=== PATIENT | female | born 1945 | race Asian ===

== ENCOUNTER 2020-09-27 22:29 | Inpatient (IN) | payer MEDICARE, OTHER ==
[~2020-09-27] VITALS: Ht 157.5 cm; Wt 46.7 kg
[2020-09-27 23:05] LABS: BASOPHILS % (AUTO) 0.6 % (0.0-2.0); EOSINOPHILS # (AUTO) 0.1 K/uL (0.0-0.7); HEMATOCRIT 39.7 % (31.2-41.9); HEMOGLOBIN 13.3 g/dL (10.9-14.3); LYMPHOCYTES # (AUTO) 2.1 K/uL (20.0-40.0); LYMPHOCYTES % (AUTO) 31.4 % (20.5-51.5); MEAN CORPUSCULAR HEMOGLOBIN 31.2 uug (24.7-32.8); MEAN CORPUSCULAR HGB CONC 34 g/dL (32.3-35.6); MEAN CORPUSCULAR VOLUME 92.9 fL (75.5-95.3); MONOCYTES # (AUTO) 0.8 K/uL (2.0-10.0); MONOCYTES % (AUTO) 11.6 % (0.0-11.0); NEUTROPHILS # (AUTO) 3.6 K/uL (1.8-8.9); NEUTROPHILS % (AUTO) 54.4 % (38.5-71.5); PLATELET COUNT (AUTO) 198 K/uL (179-408); RED BLOOD CELL COUNT(AUTO) 4.27 MIL/uL (3.63-4.92); WHITE BLOOD COUNT (AUTO) 6.6 K/uL (3.8-11.8)
[2020-09-27 23:08] LABS: CARBON DIOXIDE 27 mmol/L (21-32); CHLORIDE 104 mmol/L (98-107); CREATININE 0.8 mg/dL (0.6-1.3); GLUCOSE 96 mg/dL (74-106); POTASSIUM 3.6 mmol/L (3.5-5.1); UREA NITROGEN, BLOOD 16 mg/dL (7-18)
[2020-09-27 23:21] LABS: THYROID STIMULATING HORMONE 2.842 mIU/mL (0.358-3.740)
[2020-09-27 23:23] LABS: ALANINE AMINOTRANSFERASE 12 U/L (14-59); ALKALINE PHOSPHATASE 73 U/L (50-136); ASPARTATE AMINOTRANSFERASE 15 U/L (15-37); BILIRUBIN,DIRECT 0.1 mg/dL (0.0-0.2); BILIRUBIN,TOTAL 0.3 mg/dL (0.2-1.0); TOTAL PROTEIN, SERUM 6.8 g/dL (6.4-8.2)
[2020-09-27 23:25] LABS: ACETAMINOPHEN < 2.0 ug/mL (10-30)
[2020-09-27] MEDS ORDERED: MULT-213 PO (23:27)
[2020-09-27] MEDS ORDERED: MAGN400O6 PO (23:27)
[2020-09-27] MEDS ORDERED: ACET-2154 PO (23:27)
[2020-09-27] MEDS ORDERED: CYAN-10 IJ (23:27)
[2020-09-27] MEDS ORDERED: QUER1POW PO (23:27)
[2020-09-27] MEDS ORDERED: MELA3TAB41 PO (23:27)
[2020-09-27] MEDS ORDERED: DOCU100C36 PO (23:27)
[2020-09-27] MEDS ORDERED: RISP1TAB7 PO (23:27)
[2020-09-27] MEDS ORDERED: CRAN425C6 PO (23:27)
[2020-09-27] MEDS ORDERED: DIVA125C2 PO ×2 (23:27)
[2020-09-27 23:33] LABS: ETHANOL < 3 MG/DL (0-0)
[2020-09-27 23:57] LABS: *BILIRUBIN,URIN NEGATIVE (NEGATIVE); *BLOOD, URINE NEGATIVE (NEGATIVE); *CLARITY,URINE CLEAR (CLEAR); *COLOR,URINE YELLOW (YELLOW); *KETONES,URINE NEGATIVE (NEGATIVE); *UROBILINOGEN,URINE 0.2 E.U./dl (NORMAL); LEUKOCYTE ESTERASE ,URINE NEGATIVE (NEGATIVE); NITRITE, URINE NEGATIVE (NEGATIVE); PH,URINE 6.5 (5.0-8.0); UGLUCOSE TRACE (NEGATIVE)
[2020-09-28 00:09] LABS: BACTERIA,URINE NONE SEEN /HPF (NONE SEEN); RBC,URINE 0-3 /HPF (0-3); SQUAMOUS EPITHELIAL CELL,UR FEW /HPF (NONE SEEN)
[2020-09-28 00:13] LABS: *AMPHETAMINE, URINE NEGATIVE (NEGATIVE); *CANNABINOID, URINE NEGATIVE (NEGATIVE); *COCCAINE, URINE NEGATIVE (NEGATIVE); *OPIATE, URINE NEGATIVE (NEGATIVE); *PHENCYCLIDINE SCREEN,URINE NEGATIVE (NEGATIVE)
--- NOTE | 2020-09-28 01:30 | NUR ---
Called for room, patient will be going to room 141A under the care of Dr. Donnelly/YULY Meier.
--- NOTE | 2020-09-28 01:45 | NUR ---
Report given to RN Will.
--- NOTE | 2020-09-28 02:17 | NUR ---
Patient sitting upright, looking at environment. No acute distress noted.
--- NOTE | 2020-09-28 02:30 | NUR ---
Pt. admitted to U 141A, under care of Dr. Donnelly/Hardeep Belongs List completed
[2020-09-28 02:45] VITALS: BP 137/78
[2020-09-28] MEDS ORDERED: LORAZEPAM 0.5 MG TABLET PO PRN (02:45)
[2020-09-28] MEDS ORDERED: MAGNESIUM HYDROXIDE 30 ML LIQUID UDC PO PRN (02:45)
[2020-09-28] MEDS ORDERED: MAG HYDROX/AL HYDROX/SIMETH 30 ML LIQUID UDC PO PRN (02:45)
[2020-09-28] MEDS ORDERED: TEMAZEPAM 7.5 MG CAPSULE PO PRN (02:45)
[2020-09-28] MEDS ORDERED: ACETAMINOPHEN 325 MG TABLET PO PRN (02:45)
[2020-09-28] MEDS ORDERED: BLOOD SUGAR DIAGNOSTIC 1 EACH STRIP VI ONE (02:45)
--- NOTE | 2020-09-28 03:00 | NUR ---
ADMITTED PATIENT ON THE MHU UNDER THE CARE OF DR MOSQUEDA, AND ERICA. PATIENT ALERT BUT WITH CONFUSION AND DELUSIONAL, DISHEVELED REFUSED TO TAKE SHOWERS. PATIENT STATES THAT SHE DOESN'T TAKE ANY KIND OF VACCINE. PATIENT AMBULATES AND CONTINENT OF BOWEL AND BLADDER. ORIENTED TO FACILITY AND TO HER ROOM.
--- NOTE | 2020-09-28 03:57 | NUR ---
Patient refused, will have lab draw at 0600.
[2020-09-28 07:30] VITALS: BP 116/70
--- NOTE | 2020-09-28 11:20 | NUR ---
Firearms Report: Med Asst completed and submitted a DOJ firearms report for 5150 danger to others and grave disability certifications. A copy of report has been placed in patient chart.
--- NOTE | 2020-09-28 11:33 | NUR ---
LAINA Family Contact: LAINA spoke with patient's son Surekha Zazueta ([phone]) is involved in the patient's care. SW discussed treatment and discharge plan.
--- NOTE | 2020-09-28 11:33 | NUR ---
LAINA Initial Discharge Plan: Patient currently resides at [facility] [address] [place] [address] ([phone]) and will return upon discharge. Patient's son Surekha Zazueta ([phone]) is involved in the patient's care. LAINA will continue to work with patient, family, and MD to ensure a safe and proper discharge plan.
[2020-09-28] MEDS: DIVALPROEX SPRINKLE 125 MG CAP.SPRINK PO SCH ×2 (12:44→16:34)
[2020-09-28] MEDS: risperiDONE-M 0.5 MG TAB.RAPDIS PO SCH ×2 (12:44→20:31)
[2020-09-28 15:48] VITALS: BP 90/51
--- NOTE | 2020-09-28 17:21 | NUR ---
Patient remains in bed the whole time, tried to open communication but refuse to talk. Patient compliant with medication. no c/o of pain/discomfort noted. will continue monitor
[2020-09-28 20:15] VITALS: BP 103/67
--- NOTE | 2020-09-29 06:29 | NUR ---
Pt asleep at this time, no s/s of distress. No complaints of pain during the shift, no change in LOC. Slept for 6.15hrs. Interacts appropriately with others when engaged. Safety precautions in place, frequent checks done.
[2020-09-29 07:30] VITALS: BP 104/68
--- NOTE | 2020-09-29 08:30 | NUR ---
ALERT REMAINS ANXIOUS AND UNCOOPERATIVE REFUSED MEDICATIONS DESPITE ENCOURAGEMENT ENCOURAGED TO PARTICIPATE IN ACTIVITIES AND REMAIN COMPLIANT WITH HER MEDICATIONS WILL CONTINUE TO PROVIDE SAFE AND THERAPEUTIC ENVIRONMENT AT ALL TIMES
--- NOTE | 2020-09-29 08:30 | NUR ---
PATIENT IS AWAKE ALERT BUT IS FORGETFUL AND DISORIENTED AT TIMES ASKS SAME QUESTIONS WANTED TO KNOW WEATHER SHE COULD LAY DOWN ON HER BED AND SLEEP REASSURED HER THAT IT WILL BE OKAY FOR HER TO LAY DOWN AND RELAX AND THEN GO TO THE ACTIVITY ROOM AND PARTICIPATE ABLE COMPLIANT WITH MEDICATIONS AND CARE SAFE AND THERAPEUTIC ENVIRONMENT PROVIDED AT ALL TIMES. Addendum: 09/29/20 at 1833 by GILDA SALINAS RN ERROR WRONG ENTRY WRONG PATIENT
[2020-09-29] MEDS: risperiDONE-M 0.5 MG TAB.RAPDIS PO SCH ×3 (08:46→20:46)
[2020-09-29] MEDS: DIVALPROEX SPRINKLE 125 MG CAP.SPRINK PO SCH ×4 (08:46→17:00)
[2020-09-29 16:00] VITALS: BP 95/62
[2020-09-29 20:20] VITALS: BP 97/57
--- NOTE | 2020-09-30 04:33 | NUR ---
Patient stayed in her room most of the shift. Patient refused medications, has multiple episode of paranoia, believes that medication bad for her body, and said that Tee was telling her about these medications are bad for her. cont to monitor.
[2020-09-30 07:30] VITALS: BP_SYST 116; BP_SYST 99; BP_DIAS 62; BP_DIAS 63
--- NOTE | 2020-09-30 07:45 | NUR ---
RECEIVED PATIENT SITTING UP IN HER BED AWAKE ALERT DEPRESSED AND QUIET STATED SHE WAS OKAY WHEN ASKED IF SHE WILL TAKE HER MEDICATIONS TODAY STATED THAT SHE WILL NOT BECAUSE ITS NOT GOOD FOR HER THAT FLOR TOLD HER NOT TO TAKE IT BECAUSE IT WILL CAUSE HER BODY HARM WILL HAVE DR MOSQUEDA TALK TO THE PATIENT TODAY.WILL CONTINUE TO PROVIDE SAFE AND THERAPEUTIC ENVIRONMENT AT ALL TIMES.
[2020-09-30] MEDS ORDERED: Medication Not On Formulary EA (Multivitamins W-Minerals (Multivitamin With Minerals) 1 PO SCH (09:00)
[2020-09-30] MEDS: MULTIVIT, IRON, MIN NO. 8, FA TABLET PO SCH (09:00)
[2020-09-30] MEDS: risperiDONE-M 0.5 MG TAB.RAPDIS PO SCH ×2 (09:00→21:00)
[2020-09-30] MEDS: DOCUSATE SODIUM 100 MG CAPSULE PO SCH (09:00)
[2020-09-30] MEDS: DIVALPROEX SPRINKLE 125 MG CAP.SPRINK PO SCH ×3 (09:00→17:00)
--- NOTE | 2020-09-30 09:04 | NUR ---
PATIENT LAYING IN BED REFUSED ALL HER MEDICATIONS AT THIS TIME STATED THAT THEY ARE NOT GOOD FOR HER THEY MAKE HER SHAKE AND THAT SHE IS HERE TO RELAX AND FEEL BETTER SO WILL NOTIFY DR MOSQUEDA PATIENT CONTINUES TO RERFUSE MEDS.
--- NOTE | 2020-09-30 15:00 | NUR ---
DR MOSQUEDA HERE TO SEE PATIENT AND WAS NOTIFIED THAT PATIENT HAS NOT TAKEN HER MEDICATIONS SINCE YESTERDAY WITH NO NEW ORDERS AT THIS TIME DR MOSQUEDA WANTED TO GIVE THE PATIENT AN EXTENDED RELEASE INJECTION BUT PATIENT REFUSED.
--- NOTE | 2020-09-30 15:58 | NUR ---
SW Individual Therapy Note: SW met with patient today for brief individual counseling and addressed patient's presenting problem delusional thought process.Patient presents with withdrawn mood and flat affect. SW encouraged patient to engage in a meaningful conversation and join group activities. Patient has been isolative in her room, laying in bed. Patient states, "I am fine" and nods her head "no" to joining group. Patient closed her eyes and refused to engage in a conversation. SW will continue to work with the patient and remain available for ongoing psychosocial support.
[2020-09-30 16:00] VITALS: BP 97/58
--- NOTE | 2020-09-30 18:21 | NUR ---
RESTING IN BED WITH NO C/O STAYING IN ROOM/BED ALL DAY BUT IS EATING AND DRINKING WELL STATED THAT SHE HAS NO NEED TO TAKE ANY MEDICATIONS BECAUSE SHE FEELS FINE.
[2020-09-30 20:02] VITALS: BP 101/61
--- NOTE | 2020-10-01 06:23 | NUR ---
Patient slept 7.00 hours.
[2020-10-01 07:30] VITALS: BP 108/65
--- NOTE | 2020-10-01 07:30 | NUR ---
Sleeping, appears comfortable, not in distress
[2020-10-01] MEDS: DOCUSATE SODIUM 100 MG CAPSULE PO SCH ×2 (08:59→09:00)
[2020-10-01] MEDS: risperiDONE-M 0.5 MG TAB.RAPDIS PO SCH ×3 (09:00→20:40)
[2020-10-01] MEDS: MULTIVIT, IRON, MIN NO. 8, FA TABLET PO SCH (09:00)
[2020-10-01] MEDS: DIVALPROEX SPRINKLE 125 MG CAP.SPRINK PO SCH ×4 (09:00→17:00)
--- NOTE | 2020-10-01 10:06 | NUR ---
Anxious, refused to take medications, saying she's okay and that her mom and dad told her not take medications and she feels jittery when taking medication
--- NOTE | 2020-10-01 13:34 | NUR ---
Labile mood, pleasant, compliant with taking the medication at this time
[2020-10-01] MEDS: INVEGA SUSTENNA 234 MG IM ONE ×2 (16:54→19:35)
[2020-10-01 17:22] VITALS: BP 121/81
--- NOTE | 2020-10-01 18:11 | NUR ---
Initially agreed to take Invega IM but later refused the dose and became agitated. Dr. Donnelly informed and will try to attempt again giving the dose
--- NOTE | 2020-10-01 19:35 | NUR ---
Attempted again to give Invega IM but patient refused medication, endorsed
[2020-10-01 20:47] VITALS: BP 105/59
--- NOTE | 2020-10-02 06:31 | NUR ---
Patient slept a total of 7.30 hours.
[2020-10-02 07:30] VITALS: BP 112/71
[2020-10-02] MEDS: DIVALPROEX SPRINKLE 125 MG CAP.SPRINK PO SCH ×4 (08:23→16:32)
[2020-10-02] MEDS: DOCUSATE SODIUM 100 MG CAPSULE PO SCH ×2 (08:23→08:27)
[2020-10-02] MEDS: risperiDONE-M 0.5 MG TAB.RAPDIS PO SCH ×3 (08:23→20:38)
[2020-10-02] MEDS: MULTIVIT, IRON, MIN NO. 8, FA TABLET PO SCH ×2 (08:23→08:27)
--- NOTE | 2020-10-02 08:28 | NUR ---
Patient refused to take oral scheduled medications stating "these medication only make me feel bad and I don't need them I have plenty of them at home and my son will take me back home". Patient educated on the benefits of taking her oral medications and educated on dcd home release criteria for MHU patient's. Patient unable to comprehend at this time. Will continue with care plan.
[2020-10-02 16:00] VITALS: BP 107/66
[2020-10-02 20:00] VITALS: BP 110/69
--- NOTE | 2020-10-03 05:55 | NUR ---
Received patient standing in the doorway of her room with dark sunglasses on. The patient proceeded to tell the database report writer " My son is on his way to pick me up tonight" and " I will not take any medication because Tee and Nahed told me not too". This database report writer provided education and encouragement to the patient about compliance. The patient adamantly refused. As the night wore on the patient became more delusional and paranoid. This database report writer attempted to reorient and redirect her, but to no avail. Staff is providing a safe environment and monitoring patient closely for AWOL as she has been seen at the unit door multiple times.
[2020-10-03] MEDS: MULTIVIT, IRON, MIN NO. 8, FA TABLET PO SCH (08:17)
[2020-10-03] MEDS: risperiDONE-M 0.5 MG TAB.RAPDIS PO SCH ×2 (08:17→21:00)
[2020-10-03] MEDS: DIVALPROEX SPRINKLE 125 MG CAP.SPRINK PO SCH ×3 (08:17→17:00)
[2020-10-03] MEDS: DOCUSATE SODIUM 100 MG CAPSULE PO SCH (08:17)
[2020-10-03 08:29] VITALS: BP 95/64
--- NOTE | 2020-10-03 08:48 | NUR ---
Received pt. on her bed, sleeping easily arousable. Patient later on refused medications stating "I don't take them they don't do any good to me". compliant on/off with nursing care. Vitals stable. Will continue to monitor.
--- NOTE | 2020-10-03 17:09 | NUR ---
Patient refusing 1700 medications stating "I don't need them they make me feel shaky and besides now that I'm not taking those medications I've been able to sleep". pt. educated one more time on the need to adhere to medication regimen and advice of care plan.
[2020-10-03 20:20] VITALS: BP 119/74
--- NOTE | 2020-10-04 05:28 | NUR ---
Patient refused to take all medications despite the china and silverware salesperson psychiatrist encouraging and educating the patient, in person, about the importance of compliance. The patient continues to be paranoid and has multiple delusions.
[2020-10-04 07:30] VITALS: BP 95/57
[2020-10-04] MEDS: MULTIVIT, IRON, MIN NO. 8, FA TABLET PO SCH (08:45)
[2020-10-04] MEDS: DOCUSATE SODIUM 100 MG CAPSULE PO SCH (08:45)
[2020-10-04] MEDS: DIVALPROEX SPRINKLE 125 MG CAP.SPRINK PO SCH ×3 (08:45→17:00)
[2020-10-04] MEDS: risperiDONE-M 0.5 MG TAB.RAPDIS PO SCH ×2 (08:45→20:28)
[2020-10-04] MEDS: BENZTROPINE MESYLATE 0.5 MG TABLET PO SCH ×3 (09:15→17:00)
--- NOTE | 2020-10-04 10:44 | NUR ---
Court Hearing: Patient's court hearing was today for 5250 and it was upheld for GD.
[2020-10-04 15:06] VITALS: BP 90/53
[2020-10-04 20:29] VITALS: BP 115/74
--- NOTE | 2020-10-04 20:30 | NUR ---
PATIENT REFUSED HS MEDICATIONS. ALGEBRAIST NURSE NOTIFIED. ALL NEEDS ATTENDED. WILL CONTINUE TO MONITOR AND ASSESS.
[2020-10-05 07:07] LABS: BASOPHILS % (AUTO) 0.8 % (0.0-2.0); EOSINOPHILS # (AUTO) 0.2 K/uL (0.0-0.7); EOSINOPHILS % (AUTO) 2.7 % (0.0-7.0); HEMATOCRIT 40.6 % (31.2-41.9); HEMOGLOBIN 13.5 g/dL (10.9-14.3); LYMPHOCYTES # (AUTO) 2.3 K/uL (20.0-40.0); LYMPHOCYTES % (AUTO) 37.7 % (20.5-51.5); MEAN CORPUSCULAR HEMOGLOBIN 31.2 uug (24.7-32.8); MEAN CORPUSCULAR HGB CONC 33 g/dL (32.3-35.6); MEAN CORPUSCULAR VOLUME 93.7 fL (75.5-95.3); MONOCYTES # (AUTO) 0.7 K/uL (2.0-10.0); MONOCYTES % (AUTO) 11.1 % (0.0-11.0); NEUTROPHILS % (AUTO) 47.7 % (38.5-71.5); PLATELET COUNT (AUTO) 204 K/uL (179-408); RED BLOOD CELL COUNT(AUTO) 4.33 MIL/uL (3.63-4.92); WHITE BLOOD COUNT (AUTO) 6.2 K/uL (3.8-11.8)
[2020-10-05 07:12] LABS: BILIRUBIN,TOTAL 0.3 mg/dL (0.2-1.0); CREATININE 0.7 mg/dL (0.6-1.3); MAGNESIUM 2.3 mg/dL (1.8-2.4); PHOSPHOROUS 3.6 mg/dL (2.5-4.9); POTASSIUM 3.6 mmol/L (3.5-5.1); TOTAL PROTEIN, SERUM 7.1 g/dL (6.4-8.2)
[2020-10-05 07:30] VITALS: BP 104/67
[2020-10-05] MEDS: risperiDONE-M 0.5 MG TAB.RAPDIS PO SCH ×3 (09:00→20:02)
[2020-10-05] MEDS: BENZTROPINE MESYLATE 0.5 MG TABLET PO SCH ×3 (09:00→17:34)
[2020-10-05] MEDS: DIVALPROEX SPRINKLE 125 MG CAP.SPRINK PO SCH ×3 (09:00→17:34)
[2020-10-05] MEDS: MULTIVIT, IRON, MIN NO. 8, FA TABLET PO SCH (09:00)
[2020-10-05] MEDS: DOCUSATE SODIUM 100 MG CAPSULE PO SCH (09:00)
[2020-10-05] MEDS ORDERED: OLANZAPINE 10 MG VIAL IM PRN (10:30)
[2020-10-05 15:26] VITALS: BP 94/61
[2020-10-05 20:30] VITALS: BP 114/75
[2020-10-06 07:30] VITALS: BP 104/60
--- NOTE | 2020-10-06 07:30 | NUR ---
Received report from TREVON Rose. All questions, comments, and concerns were addressed. Patient resting quietly and comfortably in her assigned bed. Bed is in low and locked position.
[2020-10-06] MEDS: risperiDONE-M 0.5 MG TAB.RAPDIS PO SCH ×2 (08:30→20:04)
[2020-10-06] MEDS: MULTIVIT, IRON, MIN NO. 8, FA TABLET PO SCH (08:30)
[2020-10-06] MEDS: DOCUSATE SODIUM 100 MG CAPSULE PO SCH (08:30)
[2020-10-06] MEDS: DIVALPROEX SPRINKLE 125 MG CAP.SPRINK PO SCH ×3 (08:30→17:00)
[2020-10-06] MEDS: BENZTROPINE MESYLATE 0.5 MG TABLET PO SCH ×3 (08:30→17:00)
--- NOTE | 2020-10-06 10:20 | NUR ---
Patient is alert and oriented. Patient is guarded, isolative, and withdrawn to her room. She is dismissive with this financial underwriter and is refusing to participate in the unit groups and activities. Patient denies SI/HI, denies AH/VH but she is noted with paranoid delusions and is suspicious of staff. Patient believes that staff is attempting to harm her and she generalizes threats to staff. Patient refused AM medications. She states that she is "done" taking medications, she does not need anymore medications, and that her medications make her "cold and shaky". Patient was provided with education about importance of medication adherence, risks and benefits of medication, but she continues to say "no" and refuse. Per Riese order, patient given Zyprexa 3 mg IM once. Patient educated about injection but is refusing education at this time. Patient encouraged to participate in the unit groups and therapeutic milieu but she continues to be angry and irritable. Patient's safety maintained.
[2020-10-06] MEDS ORDERED: OLANZAPINE 10 MG VIAL IM PRN (10:45)
--- NOTE | 2020-10-06 13:00 | NUR ---
Patient refused scheduled 1300 medications. Patient was provided with education about importance of medication adherence, risks and benefits of medication, but she continues to say "no" and refuse. Patient is refusing to participate and is angry and irritable. Patient's safety maintained.
--- NOTE | 2020-10-06 15:36 | NUR ---
SW Individual Therapy Note: SW met with patient today for brief individual counseling and addressed patient's presenting problem delusional thought process. Patient presents with withdrawn mood and isolative. Patient in her bed with blanket covering herself. This SW encouraged pt to engage with peers and to join group. Pt refused and stated "No, I am sleeping". Patient does not want to conduct therapy, interact with peers or join group. SW unable to conduct therapy at this time.
[2020-10-06 16:00] VITALS: BP 101/65
[2020-10-06 20:52] VITALS: BP 123/80
[2020-10-07 07:30] VITALS: BP 96/71
[2020-10-07] MEDS: DOCUSATE SODIUM 100 MG CAPSULE PO SCH (08:23)
[2020-10-07] MEDS: MULTIVIT, IRON, MIN NO. 8, FA TABLET PO SCH (08:23)
[2020-10-07] MEDS: DIVALPROEX SPRINKLE 125 MG CAP.SPRINK PO SCH ×3 (08:23→16:14)
[2020-10-07] MEDS: BENZTROPINE MESYLATE 0.5 MG TABLET PO SCH ×3 (08:24→16:14)
[2020-10-07] MEDS: risperiDONE-M 0.5 MG TAB.RAPDIS PO SCH (08:24)
[2020-10-07] MEDS ORDERED: MISCELLANEOUS MED XX PRN (14:00)
[2020-10-07 16:39] VITALS: BP 90/59
[2020-10-07 20:15] VITALS: BP 95/70
--- NOTE | 2020-10-07 21:25 | NUR ---
received patient in bed alert and oriented x3-4. Calm and cooperative. VSS. Needs attended. Ambulatory. Compliant with care. No signs of any behavioral issues noted. Continent of bowel and bladder. Will monitor patient.
[2020-10-08 07:30] VITALS: BP 111/65
[2020-10-08] MEDS: DIVALPROEX SPRINKLE 125 MG CAP.SPRINK PO SCH ×3 (09:00→16:42)
[2020-10-08] MEDS: DOCUSATE SODIUM 100 MG CAPSULE PO SCH (09:00)
[2020-10-08] MEDS: MULTIVIT, IRON, MIN NO. 8, FA TABLET PO SCH (09:00)
[2020-10-08] MEDS: BENZTROPINE MESYLATE 0.5 MG TABLET PO SCH ×3 (09:00→16:42)
[2020-10-08] MEDS: risperiDONE 1 MG TABLET PO SCH ×2 (09:45→20:55)
[2020-10-08] MEDS: OLANZAPINE 10 MG VIAL IM PRN (10:04)
--- NOTE | 2020-10-08 14:38 | NUR ---
SW Individual Therapy Note: SW met with patient today for brief individual counseling and addressed patient's presenting problem delusional thought process. Patient presents isolative and withdrawn. Patient continues to refuse to engage in group activities or engage in meaningful conversation. Patient nods her head "yes" or "no" when asking her questions however says "no" to having a discussion. SW encouraged patient to at least join one group daily. SW will continue to work with the patient and remain available for ongoing psychosocial support.
[2020-10-08 16:45] VITALS: BP 129/81
[2020-10-08 20:13] VITALS: BP 107/63
[2020-10-09 00:38] VITALS: BP 97/57
[2020-10-09 04:00] VITALS: BP 103/72
--- NOTE | 2020-10-09 05:43 | NUR ---
GPS: Remain calm and cooperative. no aggressive behavior noted. patient continue isolative with staff. ambulate with steady gait. self care. resting in bed comfortably.continue plan of care.
--- NOTE | 2020-10-09 05:51 | NUR ---
slept 4 hrs through night.
[2020-10-09] MEDS: MULTIVIT, IRON, MIN NO. 8, FA TABLET PO SCH (08:27)
[2020-10-09] MEDS: risperiDONE 1 MG TABLET PO SCH ×2 (08:27→20:11)
[2020-10-09] MEDS: DIVALPROEX SPRINKLE 125 MG CAP.SPRINK PO SCH ×4 (08:27→17:00)
[2020-10-09] MEDS: DOCUSATE SODIUM 100 MG CAPSULE PO SCH (08:27)
[2020-10-09] MEDS: BENZTROPINE MESYLATE 0.5 MG TABLET PO SCH ×4 (08:27→17:00)
[2020-10-09 08:28] VITALS: BP 94/53
--- NOTE | 2020-10-09 13:30 | NUR ---
Received patient AOx2-3, patient calm anc cooperative, redirectable, took morning medication, but refused her 1pm medication , verbalized that the doctor will give her medication not the nurses, patient delusional and paranoid, mentally preoccupied ,, assisted with ADL, denies SI and HI, patient isolative , monitored [id number] for safety and elopement risk, no sign of distress at this time
[2020-10-09 16:17] VITALS: BP 99/64
[2020-10-09 20:00] VITALS: BP 93/56
[2020-10-10 00:02] VITALS: BP 93/54
--- NOTE | 2020-10-10 06:01 | NUR ---
GPS: Remain calm and cooperative. no aggressive behavior noted. patient continue isolative with staff. ambulate with steady gait. self care. slept 7 hrs through the night. Resting in bed comfortably.continue plan of care.
[2020-10-10 07:30] VITALS: BP 91/56
[2020-10-10] MEDS: BENZTROPINE MESYLATE 0.5 MG TABLET PO SCH ×3 (08:39→16:36)
[2020-10-10] MEDS: risperiDONE 1 MG TABLET PO SCH ×2 (08:40→20:45)
[2020-10-10] MEDS: DIVALPROEX SPRINKLE 125 MG CAP.SPRINK PO SCH ×3 (08:41→16:36)
[2020-10-10] MEDS: DOCUSATE SODIUM 100 MG CAPSULE PO SCH (08:43)
[2020-10-10] MEDS: MULTIVIT, IRON, MIN NO. 8, FA TABLET PO SCH (08:43)
--- NOTE | 2020-10-10 13:50 | NUR ---
Received pt is alert and oriented. Patient is guarded, isolative, and withdrawn to her room.took some of am medication,patient remains delusional paranoid and suspicious.will continue close monitoring.
[2020-10-10 15:13] VITALS: BP 99/64
[2020-10-10 20:12] VITALS: BP 101/56
--- NOTE | 2020-10-10 21:00 | NUR ---
RECEIVED PATIENT IN HER ROOM IN BED. SHE IS NOTED A/O X 1 ISOLATIVE AND WITHDRAWN. SHE IS IRRITABLE, WITH DELUSIONAL THINKING, AND ANGRY. SHE IS POOR HISTORIAN. WHEN GIVEN HER [facility] MEDICATION, SHE STATED, "THIS IS THE LAST TIME I TAKE MEDICATION, NO MORE, NO MORE". PATIENT REQUIRED REDIRECTION. V/S STABLE. SHE IS REASSURED FOR HIS SAFETY, SAFETY AND FALL PRECAUTION IN PLACE. WILL CONTINUE TO MONITOR.
[2020-10-11 07:30] VITALS: BP 90/59
--- NOTE | 2020-10-11 08:00 | NUR ---
Pt very suspicious and asking lots of question who are you? what do you need from me? Your going to hurt me! I dont want you here! Explained to pt that im her nurse. Pt denies any c/o pain. No SI noted.
[2020-10-11] MEDS: BENZTROPINE MESYLATE 0.5 MG TABLET PO SCH ×4 (08:16→17:00)
[2020-10-11] MEDS: risperiDONE 1 MG TABLET PO SCH ×2 (08:16→22:48)
[2020-10-11] MEDS: DOCUSATE SODIUM 100 MG CAPSULE PO SCH (08:16)
[2020-10-11] MEDS: DIVALPROEX SPRINKLE 125 MG CAP.SPRINK PO SCH ×4 (08:16→17:00)
[2020-10-11] MEDS: MULTIVIT, IRON, MIN NO. 8, FA TABLET PO SCH (08:16)
--- NOTE | 2020-10-11 12:30 | NUR ---
Pt refused her depakote and cogentin. Explained to patient purpose of medication but pt continues to refuse meds.
[2020-10-11 15:16] VITALS: BP 99/72
--- NOTE | 2020-10-11 20:00 | NUR ---
Received patient in her room in bed. She is noted awake; however, she is not making eye contact with this real estate underwriter. keeps ignoring questions. Pt is unable to have a meaningful conversation with this real estate underwriter. she continue guarded and suspicious. She is hard to redirected. PO fluids and snacks were offered yet refused. safety and fall precautions in place. pt is reassured for her safety. She refused V/S. will continue to monitor.
--- NOTE | 2020-10-11 22:50 | NUR ---
Patient was offered Risperdal 2mg PO Q12hrs three times; however, she refused every time. "She stated, "I am not taking any medication, if you come back I will fuck you up, just come closer, i will fuck you up." as she grabbed a bottle of water and put it inside her blanket. Patient is Riese, if she refused Risperdal 2mg QHS, she will get Zyprexa 3mg IM. Patient was advised three times, that if she refused PO medication, per court order, she will received IM Zyprexa; however, she continue with threatening behavior, hostile and angry. Security staff was called to assist in given patient the shot; however, when entering the room, patient gave up the bottle of water and stated, "I will take the pill, I will take the pill". patient then was given the pill: Risperdal 2mg PO Q12 hrs. she was checked for "cheeking". Patient was also reassured. safety precaution in place. will continue to monitor.
[2020-10-12 07:06] LABS: BASOPHILS % (AUTO) 0.6 % (0.0-2.0); EOSINOPHILS # (AUTO) 0.1 K/uL (0.0-0.7); EOSINOPHILS % (AUTO) 2.3 % (0.0-7.0); HEMATOCRIT 37.6 % (31.2-41.9); HEMOGLOBIN 12.5 g/dL (10.9-14.3); LYMPHOCYTES # (AUTO) 1.6 K/uL (20.0-40.0); LYMPHOCYTES % (AUTO) 24.7 % (20.5-51.5); MEAN CORPUSCULAR HEMOGLOBIN 31.2 uug (24.7-32.8); MEAN CORPUSCULAR HGB CONC 33 g/dL (32.3-35.6); MEAN CORPUSCULAR VOLUME 93.7 fL (75.5-95.3); MONOCYTES # (AUTO) 0.5 K/uL (2.0-10.0); MONOCYTES % (AUTO) 7.3 % (0.0-11.0); NEUTROPHILS # (AUTO) 4.3 K/uL (1.8-8.9); NEUTROPHILS % (AUTO) 65.1 % (38.5-71.5); PLATELET COUNT (AUTO) 196 K/uL (179-408); RED BLOOD CELL COUNT(AUTO) 4.01 MIL/uL (3.63-4.92); WHITE BLOOD COUNT (AUTO) 6.6 K/uL (3.8-11.8)
[2020-10-12 07:22] LABS: BILIRUBIN,TOTAL 0.3 mg/dL (0.2-1.0); CREATININE 0.7 mg/dL (0.6-1.3); POTASSIUM 3.7 mmol/L (3.5-5.1); TOTAL PROTEIN, SERUM 6.5 g/dL (6.4-8.2)
[2020-10-12 07:30] VITALS: BP 111/67
[2020-10-12] MEDS: DIVALPROEX SPRINKLE 125 MG CAP.SPRINK PO SCH ×4 (09:00→17:00)
[2020-10-12] MEDS: BENZTROPINE MESYLATE 0.5 MG TABLET PO SCH ×4 (09:00→17:00)
[2020-10-12] MEDS: MULTIVIT, IRON, MIN NO. 8, FA TABLET PO SCH ×2 (09:00→09:02)
[2020-10-12] MEDS: risperiDONE 1 MG TABLET PO SCH ×3 (09:00→20:26)
[2020-10-12] MEDS: DOCUSATE SODIUM 100 MG CAPSULE PO SCH ×2 (09:00→09:02)
[2020-10-12] MEDS: ENSURE ENLIVE (VAN) 240 ML LIQUID PO SCH (09:02)
--- NOTE | 2020-10-12 09:30 | NUR ---
Offered am medications x2 but Pt continues to refused to take her psych meds. Instructed pt that she will get a Zyprexa shot for refusing her medication. Prior to giving shot to pt, pT threw water bottle at the IMPLEMENTATION PROJECT COORDINATOR. "You get Away from my room" IM zyprexa 3mg given on left deltoid as ordered. Took away Pt's water bottles and other items on her countertop for safety of staff.
[2020-10-12] MEDS: OLANZAPINE 10 MG VIAL IM PRN (09:46)
--- NOTE | 2020-10-12 10:00 | NUR ---
Pt in hallway upset at staff yelling. "You guys don give me a shot" Explained to pt that she needs to take her medications. Assisted pt back to her room and bed.
--- NOTE | 2020-10-12 11:00 | NUR ---
Pt quietly sleeping in bed. Resp 18.
--- NOTE | 2020-10-12 15:40 | NUR ---
LAINA Individual Therapy Note: SW met with patient today for brief individual counseling and addressed patient's presenting problem delusional thought process. Patient continues to remain isolative and withdrawn in her room. SW encouraged patient to join group activities in the dining room. Patient shook her head "No". Patient the laid down in bed and refused to engage with this social service assistant. SW will continue to work with the patient and remain available for ongoing psychosocial support.
--- NOTE | 2020-10-12 18:49 | NUR ---
Pt continues to refuse taking her depakote and cogentin x 2 today. Explained to pt purpose of medications but pt continues to refuse meds.
[2020-10-12 20:12] VITALS: BP 101/61
--- NOTE | 2020-10-13 06:27 | NUR ---
Patient compliant with medication and care .Took shower in the morning.Slept approximately 7.30 hrs
[2020-10-13 07:30] VITALS: BP 108/73
[2020-10-13] MEDS: ENSURE ENLIVE (VAN) 240 ML LIQUID PO SCH (09:00)
[2020-10-13] MEDS: DIVALPROEX SPRINKLE 125 MG CAP.SPRINK PO SCH ×3 (09:00→17:00)
[2020-10-13] MEDS: DOCUSATE SODIUM 100 MG CAPSULE PO SCH (09:00)
[2020-10-13] MEDS: BENZTROPINE MESYLATE 0.5 MG TABLET PO SCH ×3 (09:00→17:00)
[2020-10-13] MEDS: MULTIVIT, IRON, MIN NO. 8, FA TABLET PO SCH (09:00)
[2020-10-13] MEDS: risperiDONE 1 MG TABLET PO SCH ×2 (09:27→20:30)
[2020-10-13 16:00] VITALS: BP 112/70
[2020-10-13 20:10] VITALS: BP 108/70
--- NOTE | 2020-10-14 06:16 | NUR ---
GPS: Remain calm and cooperative. no aggressive behavior noted. patient continue isolative with staff. ambulate with steady gait. self care. slept 8.15 hrs through the night. Resting in bed comfortably.continue plan of care.
[2020-10-14 07:30] VITALS: BP 118/65
[2020-10-14] MEDS: BENZTROPINE MESYLATE 0.5 MG TABLET PO SCH ×3 (09:00→17:00)
[2020-10-14] MEDS: MULTIVIT, IRON, MIN NO. 8, FA TABLET PO SCH (09:00)
[2020-10-14] MEDS: ENSURE ENLIVE (VAN) 240 ML LIQUID PO SCH (09:00)
[2020-10-14] MEDS: DOCUSATE SODIUM 100 MG CAPSULE PO SCH (09:00)
[2020-10-14] MEDS: risperiDONE 1 MG TABLET PO SCH (09:00)
[2020-10-14] MEDS: OLANZAPINE 10 MG VIAL IM PRN (10:41)
[2020-10-14] MEDS ORDERED: INVEGA SUSTENNA 234 MG IM ONE (13:30)
[2020-10-14 16:00] VITALS: BP 115/62
[2020-10-14 20:13] VITALS: BP 116/64
--- NOTE | 2020-10-15 05:35 | NUR ---
GPS: Remain calm and cooperative with nursing care. no aggressive behavior noted. patient continue isolative with staff. ambulate with steady gait. self care. Resting in bed comfortably.continue plan of care.
--- NOTE | 2020-10-15 06:07 | NUR ---
GPS: SLEPT 10.15 HRS THROUGH THE NIGHT.
[2020-10-15 07:30] VITALS: BP 124/79
[2020-10-15] MEDS: ENSURE ENLIVE (VAN) 240 ML LIQUID PO SCH (08:44)
[2020-10-15] MEDS: BENZTROPINE MESYLATE 0.5 MG TABLET PO SCH ×3 (08:44→16:33)
[2020-10-15] MEDS: DOCUSATE SODIUM 100 MG CAPSULE PO SCH (08:46)
[2020-10-15] MEDS: MULTIVIT, IRON, MIN NO. 8, FA TABLET PO SCH (08:46)
--- NOTE | 2020-10-15 17:27 | NUR ---
RECEIVED PATIENT CALM IN HER ROOM, PATIENT CONTINUALLY GAVING PARANOID DELUSION , REFUSING HER MEICATION, BELIEVES THAT SHES POISONED AND THAT THE MEDICATION IS DOING NO GOOD, SEEN AND EXAMINED BY DR. MOSQUEDA , MONITORED [id number]
[2020-10-15 17:37] VITALS: BP 119/80
--- NOTE | 2020-10-15 20:00 | NUR ---
RECEIVED PATIENT IN HER ROOM IN BED. SHE IS NOTED AWAKE; HOWEVER, SHE IS IGNORING THIS BREAKER UNIT ASSEMBLER, HE DOES NOT ANSWER ANY QUESTION, REFUSING TO INTERACT WITH STAFF. PATIENT WAS REASSURED FOR HIS SAFETY. V/S STABLE. SAFETY AND FALL PRECAUTION IN PLACE. WILL CONTINUE TO MONITOR.
[2020-10-15 20:09] VITALS: BP 115/73
--- NOTE | 2020-10-15 22:00 | NUR ---
NO SCHEDULE QHS MEDICATION AT THIS TIME. PATIENT APPEAR SLEEPING. REFUSED TO INTERACT WITH STAFF. CONTINUE ISOLATIVE IN HER ROOM IN BED. WILL CONTINUE TO MONITOR.
--- NOTE | 2020-10-16 05:41 | NUR ---
Patient slept for approx 6.45 hrs through the night. Patient approached the nursing station and asked for hot water and crackers. she was noted calm and pleasant. will continue to monitor.
[2020-10-16 08:07] VITALS: BP 115/76
[2020-10-16] MEDS: ENSURE ENLIVE (VAN) 240 ML LIQUID PO SCH (08:27)
[2020-10-16] MEDS: BENZTROPINE MESYLATE 0.5 MG TABLET PO SCH ×3 (09:00→17:00)
[2020-10-16] MEDS: MULTIVIT, IRON, MIN NO. 8, FA TABLET PO SCH (09:00)
[2020-10-16] MEDS: DOCUSATE SODIUM 100 MG CAPSULE PO SCH (09:00)
[2020-10-16 16:57] VITALS: BP 107/68
--- NOTE | 2020-10-16 18:33 | NUR ---
Patient in room. no signs of acute distress. Refused all medications despite encouragement and redirection. Patient shook head "No" when offered medications and refused to verbalize reason of refusal. Frequent patient rounding for safety. Will endorse to incoming shift for continuity of care.
--- NOTE | 2020-10-16 20:00 | NUR ---
RECEIVED PATIENT IN HER ROOM IN BED. SHE IS NOTED SLEEPING, BUT EASILY AROUSABLE; WHEN CALLING HER NAME PT WAS OBSERVED IGNORING THIS INVESTIGATIONS DIRECTOR AND TURNING HER HEAD IN THE OPPOSITE DIRECTION, SHE DOES NOT ANSWER ANY QUESTION, REFUSING TO INTERACT WITH STAFF. PATIENT WAS REASSURED FOR HIS SAFETY. V/S STABLE. SAFETY AND FALL PRECAUTION IN PLACE. PT DOES NOT HAVE ANY MEDICATION QHS. WILL CONTINUE TO MONITOR.
[2020-10-16 21:43] VITALS: BP 98/58
--- NOTE | 2020-10-17 07:30 | NUR ---
Received patient awake in bed. no signs of acute distress. Patient refuses to answer questions and engage in conversation. Safety and fall precautions in place. Will continue to monitor.
[2020-10-17] MEDS: MULTIVIT, IRON, MIN NO. 8, FA TABLET PO SCH (09:00)
[2020-10-17] MEDS: BENZTROPINE MESYLATE 0.5 MG TABLET PO SCH ×3 (09:00→17:00)
[2020-10-17] MEDS: DOCUSATE SODIUM 100 MG CAPSULE PO SCH (09:00)
[2020-10-17] MEDS: ENSURE ENLIVE (VAN) 240 ML LIQUID PO SCH (09:35)
[2020-10-17 10:28] VITALS: BP 94/56
[2020-10-17 16:00] VITALS: BP 112/73
--- NOTE | 2020-10-17 18:28 | NUR ---
Patient remained in room for most shift. No signs of acute distress. Refused all due medications despite encouragement and education on the need for compliance. Patient stated she doesn't need the medications and that her MD told her not to take more medications. Patient refused to eat meals and refused to state reason for refusal. Patient would swear at staff passing by patient's room. Patient easily irritable. V/S stable. Frequent patient rounding for safety. Will endorse to incoming shift for continuity of care.
--- NOTE | 2020-10-17 19:36 | NUR ---
RECEIVED PATIENT IN HER ROOM IN BED. SHE IS AWAKE, A/O X 1. SHE CONTINUE DELUSIONAL, GRANDIOSE THINKING; ISOLATIVE TO HER ROOM AND EASILY IRRITABLE. SHE IS NOTED WITH IMPAIRED INSIGHT AND JUDGMENT TO THE REASON FOR HER ADMISSION TO MHU. SHE IS THINKING SHE IS GOING HOME TONIGHT, SHE STATES, "I AM WAITING FOR THE PARAMEDICS, THEY ARE GOING TO TAKE ME HOME AND THAT IS WHY I DID NOT EAT. MY MOM AND MY DAD TOLD ME I AM GOING HOME TONIGHT". SHE ALSO STATED, "I AM A HEALER, ALL I HAVE TO DO IS RUBBED YOU BODY ANS IT WILL BE HEALED". PT ALSO NOTED HAVING VAGUE HI, SHE STATED, "IF SOMEONE HURTS MY FAMILY I AM PREPARED TO KILL". PATIENT IS REASSURED AND REDIRECT TO REALITY. SHE IS REASSURED FOR HER SAFETY. SAFETY AND FALL PRECAUTION IN PLACE. SHE WAS OFFERED PO FLUIDS AND SNACKS, YET REFUSED. WILL CONTINUE WITH PLAN OF CARE.
[2020-10-17 19:54] VITALS: BP 101/66
--- NOTE | 2020-10-18 03:35 | NUR ---
PER NURSING STAFF, PATIENT CAME TO THE NURSING STATION EARLIER AND STATED, "I AM GOING TO KILL YOU ALL". PATIENT WAS REDIRECTED AND REASSURED, SHE THEN BACK TO HER BED. SHE IS NOW IN BED SLEEPING. WILL CONTINUE TO MONITOR CLOSELY.
--- NOTE | 2020-10-18 06:30 | NUR ---
Patient slept for approx 3hrs through the night. she is noted isolative in her room in bed. will continue to monitor.
[2020-10-18 07:30] VITALS: BP 115/72
[2020-10-18] MEDS: MULTIVIT, IRON, MIN NO. 8, FA TABLET PO SCH (09:00)
[2020-10-18] MEDS: DOCUSATE SODIUM 100 MG CAPSULE PO SCH (09:00)
[2020-10-18] MEDS: BENZTROPINE MESYLATE 0.5 MG TABLET PO SCH ×3 (09:00→16:43)
[2020-10-18] MEDS: ENSURE ENLIVE (VAN) 240 ML LIQUID PO SCH (09:00)
--- NOTE | 2020-10-18 11:36 | NUR ---
LAINA HOPKINS Hearing: Patient had 5270 probable cause hearing today and it was upheld for grave disability.
[2020-10-18 15:13] VITALS: BP 116/75
[2020-10-18 19:58] VITALS: BP 114/72
--- NOTE | 2020-10-19 06:27 | NUR ---
GPS: Pt.slept for 6.30 last night. No increased agitation noted. Re-directed and re-assured prn. Safety emphasized. Refuses to shower at this time.
[2020-10-19 07:30] VITALS: BP 91/60
[2020-10-19] MEDS: DOCUSATE SODIUM 100 MG CAPSULE PO SCH (09:00)
[2020-10-19] MEDS: MULTIVIT, IRON, MIN NO. 8, FA TABLET PO SCH (09:00)
[2020-10-19] MEDS: BENZTROPINE MESYLATE 0.5 MG TABLET PO SCH ×4 (09:00→16:44)
[2020-10-19] MEDS: ENSURE ENLIVE (VAN) 240 ML LIQUID PO SCH (09:00)
[2020-10-19 15:10] VITALS: BP 91/56
[2020-10-19 20:46] VITALS: BP 111/62
[2020-10-20 07:30] VITALS: BP 111/66
--- NOTE | 2020-10-20 08:08 | NUR ---
SW Discharge Note: Patient will be discharged to [facility] [address] [facility] [address] ([phone]). Patient will be provided with ambulance transportation today at 1pm. Spoke with surekha Sousa at the facility and Ortiz, health service coordinator who state they are ready to accept the patient today. Patient is aware and agreeable with discharge plans and presents with appropriate mood and congruent affect. Patient is alert and oriented x3, is unable to plan for self-care, however, is willing to received care provided for her at [facility]. Patient denies any suicidal or homicidal ideation. Patient will follow-up at the facility with Psychiatrist Dr. Donnelly and Service Center Representative Dr. Mireles. Patients son, Vania Zazueta ([phone]) is aware and agreeable with discharge plan.
[2020-10-20] MEDS: BENZTROPINE MESYLATE 0.5 MG TABLET PO SCH ×2 (08:11→12:17)
[2020-10-20] MEDS: DOCUSATE SODIUM 100 MG CAPSULE PO SCH (08:11)
[2020-10-20] MEDS: MULTIVIT, IRON, MIN NO. 8, FA TABLET PO SCH (08:11)
[2020-10-20] MEDS: ENSURE ENLIVE (VAN) 240 ML LIQUID PO SCH (08:18)
--- NOTE | 2020-10-20 13:00 | NUR ---
Discharge Note: Patient is [facility] [address] [facility] [address] ([phone]). Patient picked up by EMT to be transported by nonemergency ambulance. Patient's belongings inventoried with patient present and all items returned. Patient provided with education about discharge instructions and continued care treatment plan, discharge medications, and importance of remaining medication adherent. Patient and tin pourer escorted off unit by nursing staff with no adverse reaction. Patient's skin is clean and intact. Patient is alert and oriented. She is able to communicate needs to staff. Able to ambulate independently. Able to provide self care and ADL's independently. Patient denies SI/HI, denies AH/VH. Patient has no signs of aggressive behavior.
[2020-11-13] MEDS ORDERED: HOME MED MISCELLANEOUS XX SCH (09:00)
== END 2020-10-20 13:00 | DRG 885 ==
LOC: ER 22:32 → GPS 09-28 02:28
PROVIDERS: ADMIT Psychiatry & Neurology Psychosomatic Medicine; ATTEND Internal Medicine
DX: F25.0 Schizoaffective disorder, bipolar type (principal); F01.50 Vascular dementia, unspecified severity, without behavioral disturbance, psychotic disturbance, mood disturbance, and anxiety; E44.0 Moderate protein-calorie malnutrition; Z68.1 Body mass index [BMI] 19.9 or less, adult; F60.9 Personality disorder, unspecified; Z91.19 Patient's noncompliance with other medical treatment and regimen; R62.7 Adult failure to thrive; Z73.6 Limitation of activities due to disability; Z20.822 Contact with and (suspected) exposure to COVID-19; F29 Unspecified psychosis not due to a substance or known physiological condition
CPT/HCPCS: 36415; 71045; 80164; 83735; 84100; 84443; 85025; 93005; A4663; G0480; J2358

== ENCOUNTER 2022-06-12 22:38 | Inpatient (IN) | payer MEDICARE, OTHER ==
[~2022-06-12] VITALS: Ht 152.4 cm; Wt 49.9 kg
[~2022-06-12 22:38] MED LIST: ACET-2154 PO; CRAN425C6 PO; CYAN-10 IJ; DOCU100C36 PO; MAGN400O6 PO; MULT-213 PO; QUER1POW PO
--- NOTE | 2022-06-12 23:05 | NUR ---
PT BROUGHT BY EMS FROM [facility] FOR MHU ADMISSION FOR 5150 D/T GD. PT A/O X1; IN NAD; VSS. DENIES PAIN AT THIS TIME
[2022-06-12] MEDS ORDERED: cogentin PO (23:10)
[2022-06-12] MEDS ORDERED: PALI117D IM (23:10)
[2022-06-12 23:18] LABS: HEMATOCRIT 41.9 % (31.2-41.9); MEAN CORPUSCULAR HEMOGLOBIN 31.2 uug (24.7-32.8); MEAN CORPUSCULAR VOLUME 94.8 fL (75.5-95.3); PLATELET COUNT (AUTO) 240 K/uL (179-408)
[2022-06-12 23:21] LABS: CARBON DIOXIDE 28 mmol/L (21-32); CHLORIDE 105 mmol/L (98-107); CREATININE 0.8 mg/dL (0.6-1.3); GLUCOSE 98 mg/dL (74-106); POTASSIUM 3.5 mmol/L (3.5-5.1); UREA NITROGEN, BLOOD 13 mg/dL (7-18)
[2022-06-12 23:27] LABS: ACETAMINOPHEN < 2.0 ug/mL (10-30); ALANINE AMINOTRANSFERASE 25 U/L (14-59); ALKALINE PHOSPHATASE 78 U/L (50-136); ASPARTATE AMINOTRANSFERASE 17 U/L (15-37); BILIRUBIN,DIRECT 0.1 mg/dL (0.0-0.2); BILIRUBIN,TOTAL 0.5 mg/dL (0.2-1.0); TOTAL PROTEIN, SERUM 7.3 g/dL (6.4-8.2)
[2022-06-12 23:28] LABS: *AMPHETAMINE, URINE NEGATIVE (NEGATIVE); *BILIRUBIN,URIN NEGATIVE (NEGATIVE); *BLOOD, URINE NEGATIVE (NEGATIVE); *CANNABINOID, URINE NEGATIVE (NEGATIVE); *CLARITY,URINE CLEAR (CLEAR); *COCCAINE, URINE NEGATIVE (NEGATIVE); *COLOR,URINE YELLOW (YELLOW); *KETONES,URINE NEGATIVE (NEGATIVE); *PHENCYCLIDINE SCREEN,URINE NEGATIVE (NEGATIVE); *UROBILINOGEN,URINE 0.2 E.U./dl (NORMAL); LEUKOCYTE ESTERASE ,URINE 1+ (NEGATIVE); NITRITE, URINE NEGATIVE (NEGATIVE); UGLUCOSE NEGATIVE (NEGATIVE)
[2022-06-12 23:30] LABS: BACTERIA,URINE FEW /HPF (NONE SEEN); SQUAMOUS EPITHELIAL CELL,UR FEW /HPF (NONE SEEN)
[2022-06-12 23:34] LABS: THYROID STIMULATING HORMONE 2.005 mIU/mL (0.358-3.740)
[2022-06-12 23:42] LABS: ETHANOL < 3 MG/DL (0-0)
--- NOTE | 2022-06-12 23:49 | NUR ---
PT IS MEDICALLY CLEAR AND PENDING MHU ADMISSION. MHU CALLED FOR HANDOFF SBAR. MHU WILL CALL BACK
--- NOTE | 2022-06-13 00:05 | NUR ---
Pt. admitted to MHU , under care of Dr. MOSQUEDA/YOAN. Belongs List completed.
[2022-06-13] MEDS ORDERED: LORAZEPAM 0.5 MG TABLET PO PRN (00:30)
[2022-06-13] MEDS ORDERED: TEMAZEPAM 7.5 MG CAPSULE PO PRN (00:30)
[2022-06-13] MEDS ORDERED: MAG HYDROX/AL HYDROX/SIMETH 30 ML LIQUID UDC PO PRN (00:30)
[2022-06-13] MEDS ORDERED: BLOOD SUGAR DIAGNOSTIC 1 EACH STRIP VI ONE (00:30)
[2022-06-13] MEDS ORDERED: ACETAMINOPHEN 325 MG TABLET PO PRN (00:30)
[2022-06-13] MEDS ORDERED: MAGNESIUM HYDROXIDE 30 ML LIQUID UDC PO PRN (00:30)
--- NOTE | 2022-06-13 01:30 | NUR ---
ADMISSION NOTE: AT APPROX 0030 ADMITTED 77 YEARS OLD [place]IN[place] FEMALE TO [facility] ON A 5150 FOR GD AND DTO. PER HOLD PATIENT LIVES AT [facility]. PER NURSING STAFF, PATIENT HAS BEEN REFUSING MEDICATIONS AND ATTACKING STAFF AND OTHER RESIDENTS. HER HOLD WILL BE UP ON 06/15/22 [place] 2151. UPON ADMISSION, PATIENT IS A/O X 1. SHE IS CALM AND PLEASANT UPON APPROACHED BUT SHE REFUSED TO SIGN HER ADMISSION PAPER. FACE TO FACE ASSESSMENT WAS DONE. PATIENT WAS ADVISE OF HER HOLD AND SHE WAS GIVEN HER ADVISEMENT WELL HER BOOKLET FOR PATIENT'S RIGHT'S WHEN IN MENTAL HEALTH FACILITIES. HE IS UNDER THE CARE OF DR. MOSQUEDA AND DEYVI MILTON. WILL CONTINUE TO MONITOR.
[2022-06-13 01:35] VITALS: BP 136/86
[2022-06-13 06:05] VITALS: BP 136/86
[2022-06-13 07:30] VITALS: BP 97/61
--- NOTE | 2022-06-13 10:11 | NUR ---
LAINA Initial Discharge Note: Pt currently resides at [facility] located at [address] [place] [address] ([phone]). LAINA will contact pt's son, Surekha [phone] to discuss pt's discharge plan. LAINA will continue to work with pt, family and MD to ensure a safe and proper discharge plan.
--- NOTE | 2022-06-13 12:12 | NUR ---
LAINA Family Contact: LAINA contacted pt's son, Surekha ([phone]) and left a voicemail for a call back. LAINA provided direct line with availability in the voicemail.
--- NOTE | 2022-06-13 12:30 | NUR ---
LAINA Family Contact: Pt's son, Surekha ([phone]) returned this SW's call and discussed pt's discharge plan. Surekha is aware that [facility] cannot continue care for the pt upon discharge. Surekha is agreeable for psychiatrist, Dr. Donnelly to recommend an alternative [facility] facility. Surekha was grateful for the help and agreeable with the treatment plan. LAINA stated this press writer will continue to inform Surekha with the discharge and treatment plan. Surekha was agreeable. Surekha stated pt does not have a DPOA or conservator.
--- NOTE | 2022-06-13 14:31 | NUR ---
Firearms Report: Plastic Products Sales Representative completed and submitted a DOJ firearms report for 5150 a danger to others and grave disability certifications. A copy of report has been placed in patient chart.
--- NOTE | 2022-06-13 15:21 | NUR ---
GPS: Nursing Notes: Destructive Behavior To Others: Patient is awake and responding to her name, uncooperative behavior, resistant with nursing care, gets easily irritable when redirected, poor anger management, isolative in her room, no interactions with peers, paranoid behavior, stated "I am not taking pills..", unable to formulate a viable plan for self care, poor appetite, angry affect, A/Ox1, evasive when questioned by staff, refusing to participate in therapeutic groups, continue to monitor for safety, continue with treatment plan.
[2022-06-13 16:02] VITALS: BP 113/79
[2022-06-13 20:50] VITALS: BP 123/70
--- NOTE | 2022-06-13 21:00 | NUR ---
RECEIVED PATIENT IN HER ROOM IN BED. SHE IS NOTED AWAKE A/O X 1. SHE IS WITHDRAWN AND ISOLATIVE. SHE IS A POOR HISTORIAN, SHE HAS IMPAIRED INSIGHT AND JUDGMENT TO THE REASON FOR HIS ADMISSION TO MHU. PATIENT IS REASSURED FOR HER SAFETY. SAFETY AND FALL PRECAUTIONS ARE IN PLACE. HER V/S ARE STABLE. SHE REFUSED SNACKS BUT SHE HAD PO FLUIDS. WILL CONTINUE TO MONITOR.
[2022-06-14 07:30] VITALS: BP 102/64
--- NOTE | 2022-06-14 14:55 | NUR ---
Received patient awake in her room. A/O X 2 to person. Patient is withdrawn, isolative, quiet, depressed, preoccupied. Patient requires minimal assistance with ADL. Patient ambulates independently, continent, self care. Patient is encourage to vent feelings and emotions. Fall and safety precautions implemented.
[2022-06-14 16:00] VITALS: BP 105/76
[2022-06-14 21:13] VITALS: BP 107/76
--- NOTE | 2022-06-15 02:10 | NUR ---
GPS NOTES: isolative and withdrawn. Avoidant with conversations, make simple sentence to communicate. She is quiet in her room. Sleeping well during shift. Kept safe.
[2022-06-15 07:30] VITALS: BP 107/76
[2022-06-15] MEDS: DOCUSATE SODIUM 100 MG CAPSULE PO SCH (09:00)
--- NOTE | 2022-06-15 13:23 | NUR ---
SW Discharge Update: Per Marifer at [facility] ([phone]) located at [address] [place] [address], pt is accepted to their facility upon discharge.
--- NOTE | 2022-06-15 15:00 | NUR ---
Received pt in room awake A/O x2. Pt depressed, withdrawn, isolative and stays in room. Pt does not participate in group activities. Patient refuses medication, nursing care and ADL's.Pt has unkept appearance.Fall and safety precautions implemented. Continue with treatment plan.
[2022-06-15 16:00] VITALS: BP 105/59
[2022-06-15] MEDS: NITROFURANTOIN/NITROFURAN MAC 100 MG CAPSULE PO SCH ×2 (16:30→21:00)
[2022-06-15 20:09] VITALS: BP 95/63
[2022-06-15] MEDS: risperiDONE 1 MG TABLET PO SCH (22:30)
--- NOTE | 2022-06-16 01:30 | NUR ---
Patient is withdrawn. Minimal eye contact, does not interact with peers. Refusing to take any medications despite education and encouragement. Poor insight, oriented x1-2 only. Safety Stratiges are in place. Continuing to monitor for depression and compliance. Patient denies SI. Will encourage verbalization of feelings.
[2022-06-16 07:30] VITALS: BP 92/52
[2022-06-16] MEDS: DOCUSATE SODIUM 100 MG CAPSULE PO SCH (08:36)
[2022-06-16] MEDS: OMEGA-3 FATTY ACIDS/FISH OIL CAPSULE PO SCH (08:36)
[2022-06-16] MEDS: NITROFURANTOIN/NITROFURAN MAC 100 MG CAPSULE PO SCH ×2 (08:36→20:39)
[2022-06-16] MEDS: risperiDONE 1 MG TABLET PO SCH ×2 (08:37→20:39)
--- NOTE | 2022-06-16 11:06 | NUR ---
LAINA Family Contact: LAINA contacted pt's son, Surekha ([phone]) and left a voicemail stating pt is cleared to discharge to [facility] ([phone]) [id number] [place] [address] via Ambulance transportation on Sunday per psychiatrist. LAINA informed Fawad to contact this group underwriter for any questions needed. LAINA also stated this group underwriter will reinform him prior to pt's discharge on Sunday. Fawad was aware and agreeable with pt's initial discharge plan.
--- NOTE | 2022-06-16 15:46 | NUR ---
Patient is isolative, withdrawn, confinding in her room, does not engage in conversations. Patient is A/O X 2 to person. Patient refuses medications. Patient states "No, never taking them" Emotional support provided. Patient requires minimal asssitance with ADL, ambulates without assistance, continent. Fall and safety precautions implemented.
[2022-06-16 16:00] VITALS: BP 102/65
[2022-06-16 20:05] VITALS: BP 105/71
--- NOTE | 2022-06-17 04:25 | NUR ---
GPS NOTES: She remains non-compliance with medications and nursing care. Isolative, guarded and argumentative when being educated on the importance of med compliance. A&0x2. No distress during shift. Safety measures at all times.
[2022-06-17 07:54] VITALS: BP 96/59
[2022-06-17] MEDS: NITROFURANTOIN/NITROFURAN MAC 100 MG CAPSULE PO SCH ×2 (09:00→20:07)
[2022-06-17] MEDS: risperiDONE 1 MG TABLET PO SCH ×2 (09:00→20:07)
[2022-06-17] MEDS: DOCUSATE SODIUM 100 MG CAPSULE PO SCH (09:00)
[2022-06-17] MEDS: OMEGA-3 FATTY ACIDS/FISH OIL CAPSULE PO SCH (09:00)
[2022-06-17 16:17] VITALS: BP 91/56
--- NOTE | 2022-06-17 16:59 | NUR ---
Received pt awake in bed,A/O x2. Pt is uncooperative with nursing care. Pt refuses all medications,Pt is withdrawn,depressed and isolative.Unkept appearance.Continue to monitor for safety,continue with treatment plan
[2022-06-17] MEDS: GLUCERNA SHAKE 237 ML CAN PO SCH (17:00)
[2022-06-17 20:10] VITALS: BP 97/57
--- NOTE | 2022-06-18 06:30 | NUR ---
GPS NOTES: Non-compliant with medications, isolative, guarded and withdrawn. Flat affect. Safety measures implemented.
[2022-06-18 08:11] VITALS: BP 90/58
[2022-06-18] MEDS: GLUCERNA SHAKE 237 ML CAN PO SCH ×3 (08:18→16:42)
[2022-06-18] MEDS: DOCUSATE SODIUM 100 MG CAPSULE PO SCH (08:20)
[2022-06-18] MEDS: OMEGA-3 FATTY ACIDS/FISH OIL CAPSULE PO SCH (08:21)
[2022-06-18] MEDS: NITROFURANTOIN/NITROFURAN MAC 100 MG CAPSULE PO SCH (08:21)
[2022-06-18] MEDS: risperiDONE 1 MG TABLET PO SCH ×2 (08:21→21:00)
--- NOTE | 2022-06-18 14:16 | NUR ---
patient is alert and oriented x2, isolative withdrawn no interaction with other peers , not compliant will all schedule medication and nursing care. patient will be discharged back to SNF in AM .
[2022-06-18 16:09] VITALS: BP 91/62
[2022-06-18 20:01] VITALS: BP 95/60
--- NOTE | 2022-06-19 00:07 | NUR ---
AOx2, suspicious and somewhat paranoid, pt is still withdrawn and isolates herself within her room for entire shift. Pt refused to take her scheduled medication nor any other prn medication. Re-education provided to help pt understand their importance. Pt stated "I'm fine, I'm strong!" PPt is self ambulatory, self care, and refused any care during this shift. Will continue to monitor.
[2022-06-19 07:45] VITALS: BP 109/59
[2022-06-19 08:20] LABS: CREATININE 0.8 mg/dL (0.6-1.3); POTASSIUM 3.9 mmol/L (3.5-5.1)
[2022-06-19] MEDS: DOCUSATE SODIUM 100 MG CAPSULE PO SCH (08:32)
[2022-06-19] MEDS: GLUCERNA SHAKE 237 ML CAN PO SCH ×2 (08:32→12:30)
[2022-06-19] MEDS: OMEGA-3 FATTY ACIDS/FISH OIL CAPSULE PO SCH (08:33)
[2022-06-19] MEDS: risperiDONE 1 MG TABLET PO SCH (08:33)
--- NOTE | 2022-06-19 09:26 | NUR ---
LAINA DISCHARGE NOTE: Pt will be discharged to [facility] ([phone]) [address] [place] [address] via Ambulance transportation at 11AM. LAINA spoke with Marifer irby at the facility who states they are ready to accept the patient today. Pt is aware and agreeable with discharge plan. Pts son, Surekha ([phone]) is aware and agreeable with the discharge plan. Pt is alert and oriented x2, is unable to plan for self-care at this time. However, pt is willing to accept care at SNF. Pt denies any suicidal or homicidal ideation. Pt will follow-up at the facility with Psychiatrist, Dr. Donnelly ([phone]) and Office Administration Instructor, Dr. Hopson. Pt presents with calm mood and congruent affect. PHARMACY: [facility] [phone]) [address] [address].
--- NOTE | 2022-06-19 10:37 | NUR ---
LAINA Discharge Note Update: Pt will be discharged to [facility] ([phone]) [address] [place] [address] via Ambulance transportation at 1PM. LAINA spoke with Marifer irby at the facility who states they are ready to accept the patient today. Pt is aware and agreeable with discharge plan. Pts son, Surekha ([phone]) is aware and agreeable with the discharge plan. Pt is alert and oriented x2, is unable to plan for self-care at this time. However, pt is willing to accept care at SNF. Pt denies any suicidal or homicidal ideation. Pt will follow-up at the facility with Psychiatrist, Dr. Donnelly ([phone]) and Seismic Prospecting Observer Helper, Dr. Hopson. Pt presents with calm mood and congruent affect. PHARMACY: [facility] [phone]) [address] [address].
--- NOTE | 2022-06-19 14:10 | NUR ---
Patient discharged to [facility] via Ambulance transportation at 2 PM. Pt is alert and oriented x2, is unable to plan for self-care at this time. However, pt is willing to accept care at SNF. Pt denies any suicidal or homicidal ideation.all personal belonging returned to patient.report given to Fatimah MACHADO. Pt will follow-up at the facility with Psychiatrist, Dr. Donnelly and Extrusion Die Template Maker, Dr. Hopson.
== END 2022-06-19 14:00 | DRG 885 ==
LOC: ER 22:40 → GPS 23:31
PROVIDERS: ADMIT Psychiatry & Neurology Psychosomatic Medicine; ATTEND Internal Medicine
DX: F25.9 Schizoaffective disorder, unspecified (principal); F29 Unspecified psychosis not due to a substance or known physiological condition; F03.90 Unspecified dementia, unspecified severity, without behavioral disturbance, psychotic disturbance, mood disturbance, and anxiety; F32.A Depression, unspecified; Z74.09 Other reduced mobility; Z87.828 Personal history of other (healed) physical injury and trauma; R26.81 Unsteadiness on feet; Z20.822 Contact with and (suspected) exposure to COVID-19; E78.5 Hyperlipidemia, unspecified; R41.9 Unspecified symptoms and signs involving cognitive functions and awareness; D51.9 Vitamin B12 deficiency anemia, unspecified
CPT/HCPCS: 36415; 84443; 84484; 85025; 93005; A4663; G0480